=== PATIENT | female | born 1965 | race Caucasian/White ===

== ENCOUNTER 2020-06-07 06:49 | Outpatient (NON) | payer OTHER, SELFPAY ==
[2020-06-08 01:24] LABS: SARS-CoV-2 RNA PCR Negative
== END 2020-06-07 06:50 ==
LOC: ANHCOVIDDT 06:49
PROVIDERS: PCP Family Medicine; Visit Provider Physician Assistant Medical
DX: Z20.828 Contact with and (suspected) exposure to other viral communicable diseases (principal); R05 Cough; J02.9 Acute pharyngitis, unspecified
CPT/HCPCS: 87635; C9803; U0003

== ENCOUNTER 2021-01-16 00:46 | Day surgery (SDC) | payer OTHER, SELFPAY ==
[2021-01-01 11:05] VITALS: BMI 26.5
[2021-01-16 10:12] VITALS: BP 115/71; PULSE 78; RESP 18; TEMP 35.8; O2SAT 99
[2021-01-16] MEDS: LACTATED RINGERS 1,000 ML 150 ML IV CONT (10:23)
--- NOTE | 2021-01-16 10:36 | WPDGICN ---
Assessment and Plan Assessment and plan (1) Dysphagia: Code(s): R13.10 - Dysphagia, unspecified Status: Acute Assessment and Plan: Patient appears to become short of breath while eating. Because of association with diet an EGD will be performed. It does not sound like aspiration as she has no coughing. But if EGD is normal we may need to consider ENT evaluation. (2) SOB (shortness of breath): Code(s): R06.02 - Shortness of breath Status: Acute (3) GERD (gastroesophageal reflux disease): Code(s): K21.9 - Gastro-esophageal reflux disease without esophagitis Status: Acute Assessment and Plan: Patient gives a history of GE reflux disease family history of Roblero's esophagus in her brother. Plan to assess with an EGD. Currently she is taking Nexium 40 mg p.o. daily she denies any heartburn. Food seems to pass adequately when eating. (4) Colon polyp: Code(s): K63.5 - Polyp of colon Status: Acute Assessment and Plan: Patient has a history of a benign hyperplastic colon polyp perhaps ought to have a colonoscopy in 7 or 8 years. GI Consult Note Consult date/time: 01/16/21 10:36 HPI: Liz Gonzales Crawley is a 55 year old female Complains of difficulty swallowing. Patient states that since April of 2020. She will have episodes of shortness of breath usually while eating. This typically does not matter what type of food she is eating. It has happened with both liquids and solids. She denies any coughing. She denies any regurgitation. She simply cannot catch her breath when eating. She states this resolves if she stops eating and takes slow deep breaths. Patient reports that this happens at least twice a week and has done so for many months. She denies any weight loss. She has had no bleeding. She has no pain. Family history is significant a brother has Roblero's esophagus. Patient herself has been treated for GE reflux disease in the past. patient is currently on Nexium 40 mg p.o. daily with no change in her current symptoms. Patient does have a past medical history of colonoscopy in 2018 with benign hyperplastic colon polyp at that time period Review of Systems Review of Systems: All systems reviewed & are unremarkable except as noted in HPI and below [facility] Past Medical History Medical History (Updated 01/16/21 @ 10:39 by Juma Boswell MD) Abnormal colonoscopy (~10/12/17) hyperplastic polyp, repeat colonoscopy in 5 years Asthma Colon polyp Essential (primary) hypertension Migraines Mixed hyperlipidemia Neuroma face, excised with conservative margins Surgical History Surgical History History of bilateral oophorectomy (~2009) History of hysterectomy (~2009) precancerous cells Family History Family History Father , age 60, lung cancer Lung cancer CAD (coronary artery disease) triple bypass Heart disease Grandparent Breast cancer Mother Osteopenia Social History Social History Smoking status: Never smoker Alcohol intake: current Alcohol use details: socially Substance use: never Substance use type: does not use Living arrangements: with family Spiritual care concerns: No Meds Home Medications and Allergies Home Medications Medication Instructions Recorded Confirmed Type aspirin 81 mg tablet,delayed 81 mg PO DAILY 10/30/19 01/01/21 History release cholecalciferol (vitamin D3) 50 50 mcg PO DAILY 10/30/19 01/01/21 History mcg (2,000 unit) capsule fluticasone furoate 200 1 inhalation INHALATION DAILY 10/30/19 01/01/21 History mcg-vilanterol 25 mcg/dose inhalation powder albuterol sulfate 90 mcg/actuation 1 puff INHALATION Q4H PRN #8.5 gm 01/28/20 01/01/21 Rx aerosol inhaler esomeprazole magnesium 40 mg
--- NOTE | 2021-01-16 11:20 | WPDANESEPPF ---
Anes - Initial Pre Proc Eval Procedure: Operation Date: 01/16/21 11:00 Proposed Procedures p Esophagogastroduodenoscopy - Juma Boswell MD Date/Time: 01/16/21 11:20 Surgeon: Juma Boswell MD Pre Op Diagnosis: dysphagia Patient Data Age: 55 Gender: F Height: 1.6 m Weight: 71.1 kg Last Vital Signs Temp 96.5 F L 01/16/21 10:12 Pulse 78 01/16/21 10:12 Resp 18 01/16/21 10:12 BP 115/71 01/16/21 10:12 Pulse Ox 99 01/16/21 10:12 Allergies Allergy/AdvReac Type Severity Reaction Status Date / Time No Known Allergies Allergy Verified 01/16/21 10:10 Home Medications Medication Instructions Recorded Confirmed Type aspirin 81 mg tablet,delayed 81 mg PO DAILY 10/30/19 01/01/21 History release cholecalciferol (vitamin D3) 50 50 mcg PO DAILY 10/30/19 01/01/21 History mcg (2,000 unit) capsule fluticasone furoate 200 1 inhalation INHALATION DAILY 10/30/19 01/01/21 History mcg-vilanterol 25 mcg/dose inhalation powder albuterol sulfate 90 mcg/actuation 1 puff INHALATION Q4H PRN #8.5 gm 01/28/20 01/01/21 Rx aerosol inhaler esomeprazole magnesium 40 mg 40 mg PO DAILY #90 cap 04/01/20 01/01/21 Rx capsule,delayed release lisinopril 5 mg PO DAILY 01/01/21 01/01/21 History simvastatin 40 mg PO DAILY 01/01/21 01/01/21 History Patient hx anesthesia problems: none Family hx anesthesia problems: none [facility] Past Medical History Medical History (Updated 01/16/21 @ 10:39 by Juma Boswell MD) Abnormal colonoscopy (~10/12/17) hyperplastic polyp, repeat colonoscopy in 5 years Asthma Colon polyp Essential (primary) hypertension Migraines Mixed hyperlipidemia Neuroma face, excised with conservative margins Surgical History Surgical History History of bilateral oophorectomy (~2009) History of hysterectomy (~2009) precancerous cells Family History Family History Father , age 60, lung cancer Lung cancer CAD (coronary artery disease) triple bypass Heart disease Grandparent Breast cancer Mother Osteopenia Social History Social History Smoking status: Never smoker Alcohol intake: current Alcohol use details: socially Substance use: never Substance use type: does not use Living arrangements: with family Spiritual care concerns: No Anes - Eval Final PreProcedure Day of Procedure 01/16/21 11:20 Patient weight: normal Heart: regular rate and rhythm Lungs: clear to auscultation Airway: Mallampati scale class II Neurological: alert and oriented Last oral intake: >/= 8 hours ASA classification: II Emergent: no Anesthetic plan: proceed Anesthesia type and monitoring: general GIVS and standard monitoring Informed Consent: The patient's anesthetic plan and its attendant risks and benefits were discussed with the patient/family/POA. Questions were solicited and answers provided to the satisfaction of the patient/family/POA.
[2021-01-16 11:41] VITALS: BP 120/78; PULSE 82; RESP 20; O2SAT 100
[2021-01-16 11:51] VITALS: BP 121/64; PULSE 80; RESP 19; O2SAT 99
[2021-01-16 12:01] VITALS: BP 127/83; PULSE 63; RESP 17; O2SAT 99
== END 2021-01-16 12:15 | disposition home or self-care (01) ==
PROVIDERS: PCP Family Medicine; Visit Provider Internal Medicine Gastroenterology
PROC: 0DJ08ZZ Inspection of Upper Intestinal Tract, Via Natural or Artificial Opening Endoscopic (ICD-10-PCS; CPT 43235; principal; 2021-01-16 11:00)
DX: R13.19 Other dysphagia (principal); Q39.4 Esophageal web; Z79.82 Long term (current) use of aspirin; Z79.51 Long term (current) use of inhaled steroids; J45.909 Unspecified asthma, uncomplicated; I10 Essential (primary) hypertension; E78.2 Mixed hyperlipidemia; R06.02 Shortness of breath; K21.9 Gastro-esophageal reflux disease without esophagitis
CPT/HCPCS: 43450; J2704; J7120

== ENCOUNTER → 2021-03-12 16:55 | Outpatient (CLI) | payer OTHER, SELFPAY ==
--- NOTE | ~2021-03-12 | XR_ITS ---
EXAMINATION: XR chest 2V DATE: 03/12/2021 17:29 INDICATION: Shortness of breath TECHNIQUE: PA and lateral views of the chest were obtained. COMPARISON: None FINDINGS: The lungs are clear with no focal airspace opacities, pulmonary edema, pleural effusion or pneumothor ax. The cardiomediastinal silhouette is normal. Mild upper thoracic spondylosis. IMPRESSION: 1. No acute cardiopulmonary disease. Reviewed, dictated and finalized at location A.
== END ==
PROVIDERS: Visit Provider Physician Assistant
DX: R06.02 Shortness of breath (principal)
CPT/HCPCS: 71046

== ENCOUNTER → 2021-10-30 11:43 | Outpatient (CLI) | payer OTHER, SELFPAY ==
--- NOTE | ~2021-10-30 | US_ITS ---
EXAMINATION: US venous doppler [facility] DATE: 10/30/2021 12:13 INDICATION: Left lower limb pain and swelling TECHNIQUE: Grayscale ultrasound images without and with compression and Doppler ultrasound images of the left lower extremity veins were obtained. COMPARISON: None. FINDINGS: The visualized portions of left common femoral vein, profunda (deep) femoral vein, femoral vein, popl iteal vein, peroneal veins, posterior tibial veins, gastrocnemius vein and greater saphenous vein out flow are patent. IMPRESSION: 1. No deep venous thrombosis in the left lower limb. Reviewed, dictated and finalized at location A.
--- NOTE | ~2021-10-30 | XR_ITS ---
XR foot LT 2V DATE: 10/30/2021 12:06 INDICATION: Left foot pain TECHNIQUE: AP and lateral views COMPARISON: None FINDINGS: There is slight plantar calcaneal enthesopathy. Second through fifth hammertoe deformities. No fracture, dislocation, periosteal reaction or bone destruction, erosive change. IMPRESSION: Slight plantar calcaneal enthesopathy Reviewed, dictated and finalized at location B.
== END ==
PROVIDERS: PCP Family Medicine; Visit Provider Physician Assistant
DX: M79.89 Other specified soft tissue disorders (principal); M77.32 Calcaneal spur, left foot
CPT/HCPCS: 73620; 93971

== ENCOUNTER → 2022-10-29 13:28 | Outpatient (CLI) | payer OTHER, SELFPAY ==
--- NOTE | ~2022-10-29 | XR_ITS ---
EXAMINATION: XR knee LT 3V DATE: 10/29/2022 13:43 INDICATION: Intermittent left knee pain. TECHNIQUE: 3 views of left knee including standing views were obtained. COMPARISON: None. FINDINGS: Bone alignment is normal. No fracture. There is mild osteoarthritis of lateral and patellof emoral compartments characterized by tiny osteophytes. No joint space narrowing. No knee joint effusi on. IMPRESSION: 1. Mild left knee osteoarthritis. Reviewed, dictated and finalized at location E.
== END ==
PROVIDERS: PCP Family Medicine; Visit Provider Nurse Practitioner Family
DX: M17.12 Unilateral primary osteoarthritis, left knee (principal)
CPT/HCPCS: 73562

== ENCOUNTER 2023-05-02 08:36 | Outpatient (CLI) | payer OTHER, SELFPAY ==
[2023-05-02 10:06] LABS: Kit Draw Collected
== END 2023-05-02 08:37 | disposition home or self-care (01) ==
LOC: ANHGOSHLAB 08:38
PROVIDERS: PCP Family Medicine; Visit Provider Nurse Practitioner Family
DX: I10 Essential (primary) hypertension (principal); E78.2 Mixed hyperlipidemia; E66.3 Overweight; R13.10 Dysphagia, unspecified; K21.9 Gastro-esophageal reflux disease without esophagitis
CPT/HCPCS: 36415

== ENCOUNTER 2023-06-23 08:40 | Outpatient (CLI) | payer OTHER, SELFPAY ==
--- NOTE | 2023-06-23 08:45 | ECG_ITS ---
Measurements Intervals [place] Rate: 72 P: 23 CO: 140 QRS: -25 QRSD: 88 T: 10 QT: 367 QTc: 404 Interpretive Statements SINUS RHYTHM DELAYED PRECORDIAL R/S TRANSITION VOLTAGE CRITERIA FOR LVH BORDERLINE T WAVE ABNORMALITY- INFERIOR LEADS BORDERLINE ECG NO PREVIOUS ECG AVAILABLE FOR COMPARISON Electronically Signed On 06-23-2023 8:55:34 [employer] by Sixto Amaral D.O.
== END 2023-06-23 08:41 | disposition home or self-care (01) ==
LOC: ANHSURGERY 08:42
PROVIDERS: PCP Family Medicine; Visit Provider Surgery Plastic and Reconstructive Surgery
DX: Z01.818 Encounter for other preprocedural examination (principal); I10 Essential (primary) hypertension
CPT/HCPCS: 93005

== ENCOUNTER 2023-06-30 01:05 | Day surgery (SDC) | payer OTHER, SELFPAY ==
[2023-06-16 11:25] VITALS: BMI 27.6
--- NOTE | 2023-06-16 11:29 | PC.NURSE ---
Report to the Outpatient Waiting Room, entrance under the green pavilion located off [facility], at time 6:00 on date 06/30/22. Planned Procedure Time: 7:30. Time changes happen often and if your time is changed the preop area will call you the afternoon before. - You and your visitor will be asked to self-screen and do not enter if you have any COVID symptoms. - A mask is optional within the hospital at this time. Patients may have clear liquids (water, carbonated beverages, clear teas, apple juice) until 3 hours prior to surgery (4:30) with a maximum of 20 ounces. - No food from midnight until time of surgery Take the following medications with a SIP of water the morning of surgery: NONE DO NOT STOP ANY OF YOUR OTHER PRESCRIPTION MEDICATIONS PRIOR TO SURGERY ?EXCEPT THE FOLLOWING Medications to discontinue per physician: VITAMINS/SUPPLEMENTS Date to take last dose: 06/26/23 PT STOPPING ASPIRIN THIS WEEK Please no make-up, nail senegalese, hairspray, perfume, deodorant, or body powder the day of surgery. No jewelry (including any body piercings) or valuables the day of surgery, leave them at home. Please take a shower or bath the night before, or the morning of, surgery with an antibacterial soap. Wear comfortable, loose fitting clothing. - Jewelry must be removed prior to entering the operating room. Rings and piercings that are not removed may be cut off. - The hospital will not accept responsibility for valuables. - Please leave all valuables, including medications, at home the day of surgery. If you are going home after surgery, a licensed bobtail driver must drive you home. - NO public transportation without another adult if you receive anesthesia. - We recommend that an adult stay with you for 24 hours following discharge. - We also recommend that you do not drive, make important decision, drink alcoholic beverages, or take any drugs that were not prescribed by your health care provider for at least 24 hours after your discharge time. Follow any additional instructions given to you from your surgeon. If you or anyone in your household have experienced Covid symptoms in the past week, please notify your surgeon or the nurse liaison at the phone number below for possible testing. Telephone instructions given to PT - SHIRIN BOYLE and asked if any additional questions and then verbalized understanding. Patient advised to call surgeon office or pre surgery nurse liaison [phone] if any additional questions.
[2023-06-30] VITALS (15 sets, daily range): BP systolic 115–139; BP diastolic 58–77; PULSE 75–108; RESP 14–20; TEMP 35.8–36.1; O2SAT 93–100
[2023-06-30] MEDS: LACTATED RINGERS 1,000 ML 30 ML IV CONT ×3 (06:40→11:01)
[2023-06-30 06:43] LABS: Urine Cotinine NEGATIVE
--- NOTE | 2023-06-30 06:55 | WPDHPUPDATE1 ---
History and Physical Update Update Date/Time: 06/30/23 06:55 History and Physical has been reviewed, including an updated exam of the patient. There are NO changes in the patient's condition. Risks, benefits, and alternatives have been discussed and questions answered. Patient agrees to proceed with procedure.
--- NOTE | 2023-06-30 07:12 | W.PM.PROC2 ---
Procedure Note - Detailed Date of Procedure 06/30/23 Pre-op Diagnosis macromastia Post-op Diagnosis Same Procedure Performed Bilateral reduction mammaplasty Surgeon Polo King MD Anesthesia General Findings Inverted T Superior medial pedicle Tissue removed: Right - 571 cc Left - 667 cc Lipoaspirate: 200 cc Description of Procedure She is here today for bilateral breast reduction. Previously and again today the risks, benefits, alternatives were discussed in extensive detail. I wanted her to be very realistic about the risks involved as well as expectations. We discussed aftercare and what to monitor for. She understands we can never guarantee final breast size and there will always be asymmetry. I was very upfront and honest about the risks of sensation change and even nipple loss (). Made sure answered all of her questions to her satisfaction today and consent was obtained. She was marked in the preoperative holding area with their verification. The patient was taken to the operating room placed supine on the operating table. Anesthesia was provided by anesthesiology. She was prepped and draped in a standard sterile fashion. A surgical time-out was taken. Stab incisions were made and I tumesced with a tumescent solution. I marked out the nipple-areolar complex at 42 mm. I then de-epithelialized the pedicle. The pedicle was well left well more than 2 cm in thickness. I then removed the inferior portion of the breast as well as the central keel to get shape based on preoperative planning. At this point copiously irrigated with saline solution and verified a strict hemostasis. I reapproximated the pillars using a 2-0 PDS. I tailor tacked the breast into place with edward. She was placed in a sitting position. Laterally she had excess so suction lipectomy was completed based on S.A.F.E. technique utilizing a 4mm basket cannula based on preoperative planning, intraoperative observation and rolling pinch which were in full agreement. I verified the nipple-areolar complex position based on preoperative markings, intraoperative measurements, and observation which were in full agreement. This nipple-areolar complex was marked at 42 mm in size. I then placed supine and de-epithelialized this. Nipple-areolar complex was inset with 3-0 Monocryl. I closed IMF deep with 1 strattafix. I closed the vertical incision with 3-0 Monocryl in the IMF with 3-0 stratafix. Then everything was closed using a running subcuticular 4-0 Monocryl and tissue glue. A dressing was placed followed by surgical bra. Patient was awoke and taken to PACU without difficulty. All instrument sponge counts were correct at the end of the case. Estimated Blood Loss 75 Drains No Packing No Pathology Yes (bilateral breast tissue) Complications No immediate complications Condition Stable Disposition PACU
--- NOTE | 2023-06-30 07:16 | WPDANESEPPF ---
Anes - Initial Pre Proc Eval Procedure: Operation Date: 06/30/23 07:30 Proposed Procedures p Bilateral Breast Reduction - Polo King MD Date/Time: 06/30/23 07:16 Surgeon: Polo King MD Pre Op Diagnosis: macromastia Patient Data Age: 57 Gender: F Height: 1.57 m Weight: 69 kg Last Vital Signs Temp 97 F L 06/30/23 06:44 Pulse 99 06/30/23 06:44 Resp 16 06/30/23 06:44 BP 131/75 06/30/23 06:44 Pulse Ox 98 06/30/23 06:44 Allergies Allergy/AdvReac Type Severity Reaction Status Date / Time No Known Allergies Allergy Verified 06/30/23 06:27 Home Medications Medication Instructions Recorded Confirmed Type aspirin 81 mg tablet,delayed 81 mg PO DAILY 10/30/19 06/16/23 History release cholecalciferol (vitamin D3) 50 50 mcg PO DAILY 10/30/19 06/16/23 History mcg (2,000 unit) capsule lisinopril 5 mg tablet See Rx Instructions .Route 02/15/23 06/16/23 Rx .COMPLEX #90 tabs simvastatin 40 mg tablet See Rx Instructions .Route 02/15/23 06/16/23 Rx .COMPLEX #90 tabs multivitamin 1 tablet PO DAILY 06/16/23 06/16/23 History Laboratory Tests 06/30/23 06:25 Cotinine Negative Patient hx anesthesia problems: none Family hx anesthesia problems: none Results Review: All pre-operative results and documents have been reviewed as part of the pre-operative evaluation. [facility] Past Medical History Medical History Abnormal colonoscopy (~10/12/17) hyperplastic polyp, repeat colonoscopy in 5 years Asthma Colon polyp Essential (primary) hypertension Migraines Mixed hyperlipidemia Neuroma face, excised with conservative margins Surgical History Surgical History History of bilateral oophorectomy (~2009) History of hysterectomy (~2009) precancerous cells Family History Family History Father , age 60, lung cancer Lung cancer CAD (coronary artery disease) triple bypass Heart disease Grandparent Breast cancer Mother Osteopenia Social History Social History (Updated 05/02/23 @ 08:08 by Ai Moore MA) Smoking status: Never smoker Alcohol intake: current Drinks per week: 2 Alcohol use details: socially Substance use: never Substance use type: does not use Lack of Transportation: No Lack of Food: Never True Current Housing: I Have Housing Concerned About Future Housing: No Difficulty Paying Gas/Electric Bills: No Difficulty Paying for Meds: No Currently Unemployed: No Education: Bachelor's Degree Difficulty w/ Childcare or Family Care: No Living arrangements: with family Spiritual care concerns: No Anes - Eval Final PreProcedure Day of Procedure 06/30/23 07:16 Patient weight: normal Heart: regular rate and rhythm Lungs: clear to auscultation Airway: Mallampati scale class II Neurological: alert and oriented Last oral intake: >/= 8 hours ASA classification: II Emergent: no Anesthetic plan: proceed Anesthesia type and monitoring: general LMA and ETT and standard monitoring Results Review: All pre-operative results and documents have been reviewed as part of the pre-operative evaluation. Informed Consent: The patient's anesthetic plan and its attendant risks and benefits were discussed with the patient/family/POA. Questions were solicited and answers provided to the satisfaction of the patient/family/POA.
[2023-06-30] MEDS: ceFAZolin 2 GM/D5W 50 ML 2 GM/50 ML BAG IVPB (07:28)
[2023-06-30] MEDS: TRANEXAMIC ACID 1,000MG/ISO100 1,000 MG/100 ML BAG 200 MG IVPB (07:38)
[2023-06-30] MEDS: LACTATED RINGERS IRRIG 1,000 ML, LIDOCAINE HCL 1% LOCAL INJ 50 ML, EPINEPHrine HCL INJ ... INFILTRATE (08:01)
--- NOTE | 2023-06-30 09:41 | SUR.OPER ---
Bilateral Breast Reduction Tissue sent Fresh to Pathology per TIO Lyon. Received by Jill in the Lab.
[2023-06-30] MEDS: fentaNYL CITRATE INJ (*CRX) 100 MCG/2 ML VIAL 25 MCG IV PUSH ×3 (10:36→10:58)
[2023-06-30] MEDS: oxyCODONE HCL (*CRX) 5 MG TAB IR PO (12:02)
== END 2023-06-30 15:03 | disposition home or self-care (01) ==
PROVIDERS: PCP Family Medicine; Visit Provider Surgery Plastic and Reconstructive Surgery
PROC: 0HBV0ZZ Excision of Bilateral Breast, Open Approach (ICD-10-PCS; CPT 19318; principal; 2023-06-30 07:30)
DX: Z41.1 Encounter for cosmetic surgery (principal); N62 Hypertrophy of breast; I10 Essential (primary) hypertension; E78.2 Mixed hyperlipidemia; Z79.82 Long term (current) use of aspirin; Z86.010 Personal history of colon polyps; Z86.018 Personal history of other benign neoplasm; Z82.49 Family history of ischemic heart disease and other diseases of the circulatory system; Z80.1 Family history of malignant neoplasm of trachea, bronchus and lung; Z80.3 Family history of malignant neoplasm of breast
CPT/HCPCS: 19318; 80307; 88305; A9270; J0171; J0690; J1100; J1170; J2250; J2405; J2704; J3010; J7120